=== PATIENT | female | born 1970 | race Caucasian/White ===

== ENCOUNTER 2019-07-04 05:46 | Day surgery (SDC) | payer OTHER ==
[~2019-07-04] VITALS: Ht 165.1 cm; Wt 57.0 kg
[~2019-07-04 05:46] MED LIST: ALPR.5 PO; AMOCLA875 PO; ATOR80 PO; Antivert25 MG PO; Aspir 8181 MG PO; CLOP75 PO; HYDACE5; HYDACE5 PO; HYDR1TAB94 PO; IBUP400 PO; IBUP800 PO; MELA3; MELATONIN5 M1 PO; METO25ER PO; NAPR500 PO; ONDA4ODT MM; PENVK500 PO; PROM25 PO
--- NOTE | 2019-07-04 07:40 | NUR ---
PT RETURNED TO RECOVERY ROOM IN RECLINER. RIGHT RADIAL TR BAND SITE SOFT NON-TENDER WITH NO HEMATOMA AND NO PULSATILE BLEEDING. PT DENIES CP. PT DOES HAVE PERIODIC CHEST HEAVINESS/SOB WITH EXERTION. CALL LIGHT IN REACH.
--- NOTE | 2019-07-04 07:44 | NUR ---
DR VALDEZ IN ROOM TO SEE PT; AWARE OF CHEST HEAVINESS INTERMITTENTLY.
--- NOTE | 2019-07-04 07:51 | NUR ---
NO CHANGES TO RIGHT RADIAL SITE. PT DRINKING COFFEE. CALL LIGHT IN REACH.
[2019-07-04] MEDS ORDERED: Isosorbide Mono30 MG PO (08:03)
--- NOTE | 2019-07-04 09:48 | NUR ---
AT 0945 TR BAND DEFLATED OVER 15 MIN WITH NO HEMATOMA AND NO PULSATILE BLEEDING. DISCHARGE INSTRUCTIONS REVIEWED ALL QUESTIONS ANSWERED.
--- NOTE | 2019-07-04 09:55 | NUR ---
NO CHANGES TO DEFLATED RIGHT TR BAND.
--- NOTE | 2019-07-04 10:13 | NUR ---
NO CHANGES TO DEFLATED RIGHT TR BAND SITE.
--- NOTE | 2019-07-04 10:34 | NUR ---
DEFLATED RIGHT TR BAND REMOVED AND POLYMEM PLACED OVER RIGHT RADIAL SITE WITH WRIST BOARD IN PLACE; NO HEMATOMA, NO PULSATILE BLEEDING. 20 G IV DISCONTINUED FROM RIGHT AC WITH INTACT CANNULA. RIGHT ARM SLING PLACED. PT ESCORTED OUT VIA WHEELCHAIR ESCORT.
== END 2019-07-04 10:40 | disposition home or self-care (01) ==
LOC: MHTC 05:46
PROC: B201YZZ Plain Radiography of Multiple Coronary Arteries using Other Contrast (ICD-10-PCS; principal; 2019-07-04)
PROC: 4A023N7 Measurement of Cardiac Sampling and Pressure, Left Heart, Percutaneous Approach (ICD-10-PCS; principal; 2019-07-04)
DX: I25.119 Atherosclerotic heart disease of native coronary artery with unspecified angina pectoris (principal); F17.200 Nicotine dependence, unspecified, uncomplicated; E78.00 Pure hypercholesterolemia, unspecified; E78.5 Hyperlipidemia, unspecified; J98.4 Other disorders of lung; Z88.8 Allergy status to other drugs, medicaments and biological substances; Z79.899 Other long term (current) drug therapy
CPT/HCPCS: 93458; 99152; 99153; C1769; C1894; J1644; J2250; J3010; J7030; Q9967

== ENCOUNTER 2020-04-02 07:02 | Day surgery (SDC) | payer OTHER ==
[~2020-04-02] VITALS: Ht 165.1 cm; Wt 63.8 kg
[~2020-04-02 07:02] MED LIST changes: +Hydroxyzine HCl25 MG; +Isosorbide Mono30 MG PO
--- NOTE | 2020-04-02 08:43 | NUR ---
04/02/20 0843 JOSE LUND PT UP TO RECLINER W/SBA. VSS ON ROOM AIR. PT DENIES PAIN/NAUSEA, REPORTS NUMBNESS/TINGLING IN FINGERS. IV DC'D. ENGAGED IN DC TEACHING AND ALL QUESTIONS ASKED AND ANSWERED. ICE PACK TO ELBOW
[2020-05-07] MEDS ORDERED: ALPR.5 (12:31)
[2020-05-07] MEDS ORDERED: ATOR40TA PO (12:31)
[2020-05-07] MEDS ORDERED: Aspir 8181 MG PO (12:31)
[2020-05-07] MEDS ORDERED: METO25ER PO (12:32)
[2020-05-07] MEDS ORDERED: HYDHCL25 (12:33)
== END 2020-04-02 08:44 | disposition home or self-care (01) ==
LOC: ORSCSDS 07:02
PROVIDERS: Orthopaedic Surgery
PROC: 01N50ZZ Release Median Nerve, Open Approach (ICD-10-PCS; principal; 2020-04-02 08:15)
DX: G56.01 Carpal tunnel syndrome, right upper limb (principal); I25.10 Atherosclerotic heart disease of native coronary artery without angina pectoris; F17.210 Nicotine dependence, cigarettes, uncomplicated; Z79.899 Other long term (current) drug therapy
CPT/HCPCS: 82947; J2250; J2704; J3010; J7120

== ENCOUNTER 2020-05-14 08:06 | Day surgery (SDC) | payer OTHER ==
[~2020-05-14] VITALS: Ht 167.6 cm; Wt 65.6 kg
[~2020-05-14 08:06] MED LIST changes: +ALPR.5; +ATOR40TA PO; +HYDHCL25
== END 2020-05-14 10:18 | disposition home or self-care (01) ==
LOC: ORSCSDS 08:06
PROVIDERS: Orthopaedic Surgery
PROC: 01N50ZZ Release Median Nerve, Open Approach (ICD-10-PCS; principal; 2020-05-14 09:15)
DX: G56.02 Carpal tunnel syndrome, left upper limb (principal); I25.10 Atherosclerotic heart disease of native coronary artery without angina pectoris; I49.9 Cardiac arrhythmia, unspecified; F32.9 Major depressive disorder, single episode, unspecified; E78.5 Hyperlipidemia, unspecified; F17.210 Nicotine dependence, cigarettes, uncomplicated; Z79.899 Other long term (current) drug therapy
CPT/HCPCS: J2250; J2370; J2704; J7120

== ENCOUNTER 2024-03-16 07:16 | Emergency (ER) | payer OTHER ==
[~2024-03-16] VITALS: Ht 165.1 cm; Wt 54.4 kg
[2024-03-16 08:11] VITALS: BP 128/81
[2024-03-16 09:12] LABS: CORONAVIRUS COVID-19 AG Negative (NEGATIVE); INFLUENZA A AG Positive (NEGATIVE); INFLUENZA B AG Negative (NEGATIVE)
== END 2024-03-16 09:47 | disposition home or self-care (01) ==
LOC: ER 07:16
PROVIDERS: Student in an Organized Health Care Education/Training Program
DX: J11.1 Influenza due to unidentified influenza virus with other respiratory manifestations (principal); F17.210 Nicotine dependence, cigarettes, uncomplicated; Z79.899 Other long term (current) drug therapy; Z88.1 Allergy status to other antibiotic agents; Z88.8 Allergy status to other drugs, medicaments and biological substances
CPT/HCPCS: 71045; 87428-QW; 99283-25

== ENCOUNTER 2024-10-27 11:28 | Emergency (ER) | payer OTHER ==
[~2024-10-27] VITALS: Ht 165.1 cm; Wt 61.2 kg
[2024-10-27 12:26] LABS: BASOPHILS ABSOLUTE AUTO 0.03 K/mm3 (0.00-0.23); BASOPHILS PERCENT AUTO 1 % (0-2); EOSINOPHILS ABSOLUTE AUTO 0.07 K/mm3 (0.00-0.68); EOSINOPHILS PERCENT AUTO 1 % (0-6); Hematocrit 43.9 % (33.0-51.0); Hemoglobin 14.5 g/dL (11.5-16.0); IMMATURE GRAN ABSOLUTE AUTO 0.01 K/mm3 (0.00-0.10); IMMATURE GRAN PERCENT AUTO 0 % (0-1); LYMPHOCYTES ABSOLUTE AUTO 2.19 K/mm3 (0.84-5.20); LYMPHOCYTES PERCENT AUTO 36 % (21-46); MONOCYTES ABSOLUTE AUTO 0.42 K/mm3 (0.16-1.47); MONOCYTES PERCENT AUTO 7 % (4-13); Mean Corpuscular HGB Conc 33.0 g/dL (31.5-36.5); Mean Corpuscular Volume 93 fL (80-100); NEUTROPHILS ABSOLUTE AUTO 3.36 K/mm3 (1.96-9.15); NEUTROPHILS PERCENT AUTO 55 % (41-73); NRBC ABSOLUTE 0.00 K/mm3 (0.00-0.02); NRBC Auto 0.0 /100 WBC (0.0-0.2); Platelet Count 275 K/mm3 (150-400); RDW Coefficient Variation 13.3 % (11.7-14.2); RDW Standard Deviation 45.1 fL (35.1-46.3)
[2024-10-27 12:49] LABS: Alanine Aminotransfer (ALT/SGP 16.0 U/L (12-78); Albumin, Blood 3.8 g/dL (3.4-5.0); Albumin/Globulin Ratio 0.9 (0.8-1.8); Anion Gap 9.0 mmol/L (3-11); Aspartate Aminotrans (AST/SGOT 25.0 U/L (12-37); Bilirubin, Total 0.3 mg/dL (0.1-1.0); Blood Urea Nitrogen 12.0 mg/dL (8-24); CO2, Blood 28.0 mmol/L (21-32); Calcium, Blood 9.3 mg/dL (8.5-10.1); Chloride, Blood 104.0 mmol/L (98-108); Creatinine, Blood 0.53 mg/dL (0.40-1.00); Globulin, Blood 4.3 g/dL (2.2-4.0); Glucose, Blood 93.0 mg/dL (70-99); Potassium, Blood 4.6 mmol/L (3.5-5.5); Sodium, Blood 136.0 mmol/L (136-145); Total Protein, Blood 8.1 g/dL (6.4-8.2)
[2024-10-27 14:30] VITALS: BP 132/79
== END 2024-10-27 14:32 | disposition home or self-care (01) ==
LOC: ER 11:28
PROVIDERS: Student in an Organized Health Care Education/Training Program
DX: K59.00 Constipation, unspecified (principal); R10.12 Left upper quadrant pain; R19.7 Diarrhea, unspecified; F17.210 Nicotine dependence, cigarettes, uncomplicated; Z79.899 Other long term (current) drug therapy; Z88.1 Allergy status to other antibiotic agents; Z88.8 Allergy status to other drugs, medicaments and biological substances
CPT/HCPCS: 74177; 80053; 83690; 85025; 99284-25; Q9967